=== PATIENT | male | born 1950 | race Caucasian/White ===

== ENCOUNTER 2019-06-11 13:35 | Inpatient (IN) | payer MEDICARE ==
[2019-06-10 23:00] VITALS: BP 107/87
[~2019-06-11] VITALS: Ht 188 cm; Wt 95.0 kg
[2019-06-11 13:35] VITALS: BP 170/102
[~2019-06-11 13:35] MED LIST: ASPIR 8181 MG PO; ASPIRIN325 PO; CELEBREX 200 M200 M1 PO; COLACE100 MG PO; FLEXERIL PO; KEFLEX500 MG PO; METAMUCIL PAC1 UDPKT PO; MILK OF MA2400 MG/10 PO; MOBIC15 MG PO; NEURONTIN 300300 M1 PO; NICOTINE TRANSD21 M1 TRANSDERM; NORCO 5-325 TA1 EACH PO; OXYCODONE HCL 55 MG PO; VITAMIN B-1100 M1 PO; XARELTO10 MG PO
[2019-06-11 14:05] LABS: ABSOLUTE LYMPHOCYTES 0.8 thou/uL (0.8-5.3); ABSOLUTE NEUTROPHILS 6.4 thou/uL (1.6-8.1); BASOPHILS 0.5 %; HEMATOCRIT 41.6 % (42.0-52.0); HEMOGLOBIN 14.6 gm/dL (14.0-18.0); LYMPHOCYTES 9.6 %; MCH 36.6 pg (26.0-34.0); MCHC 35.1 g/dL (28.0-37.0); MCV 104.3 fL (80.0-100.0); MPV 7.6 fl. (7.2-11.1); NUCLEATED RBCS 0 /100WBC; PLATELET COUNT* 160 thou/uL (150-400); POLYS 77.9 %; RBC 3.98 mil/uL (4.50-6.00); RDW-CV 13.9 % (10.5-14.5); WBC 8.2 thou/uL (4.0-11.0)
[2019-06-11 14:15] LABS: ANION GAP 13 mmol/L (7-16); BUN 2 mg/dL (7-18); CALCIUM 8.8 mg/dL (8.5-10.1); CHLORIDE 90 mmol/L (98-107); CO2 23 mmol/L (21-32); CREATININE 0.6 mg/dL (0.6-1.3); GLUCOSE 115 mg/dL (70-99); POTASSIUM 4.6 mmol/L (3.5-5.1); SODIUM 126 mmol/L (136-145)
[2019-06-11 14:24] LABS: ALBUMIN 3.3 g/dL (3.4-5.0); ALKALINE PHOSPHATASE 103 U/L (46-116); SGOT 83 U/L (15-37); SGPT 68 U/L (30-65); TOTAL BILIRUBIN 1.1 mg/dL (<0.1-1.0); TOTAL PROTEIN 6.6 g/dL (6.4-8.2); TROPONIN-I LEVEL <0.06 ng/mL (<0.06)
[2019-06-11 14:39] LABS: URINE BILIRUBIN NEGATIVE (Negative); URINE BLOOD TRACE (Negative); URINE CLARITY CLEAR; URINE COLOR YELLOW; URINE GLUCOSE-RANDOM NEGATIVE (Negative); URINE KETONES 1+ (Negative); URINE LEUKOCYTES-REFLEX NEGATIVE (Negative); URINE NITRITE-REFLEX NEGATIVE (Negative); URINE PROTEIN NEGATIVE (Negative); URINE UROBILINOGEN 0.2 E.U./dl (0.2-1.0)
[2019-06-11 14:47] LABS: AMP/METHAMP Negative (Negative); BARBITURATES Negative (Negative); BENZODIAZEPINES Negative (Negative); COCAINE Negative (Negative); METHADONE Negative (Negative); OPIATES Negative (Negative); PCP Negative (Negative); THC Negative (Negative)
[2019-06-11 16:04] LABS: APTT 27.2 Seconds (25.0-31.3); PROTIME 10.7 Seconds (9.20-11.50)
[2019-06-11 19:46] VITALS: BP 112/46
[2019-06-11 19:50] VITALS: BP 111/73
[2019-06-11 21:00] VITALS: BP 97/67
[2019-06-11 22:00] VITALS: BP 127/65
[2019-06-11 23:00] VITALS: BP 137/65
[2019-06-12] VITALS (9 sets, daily range): BP systolic 93–153; BP diastolic 60–94
[2019-06-12 05:10] LABS: ABSOLUTE LYMPHOCYTES 1.5 thou/uL (0.8-5.3); ABSOLUTE MONOCYTES 1.3 thou/uL (0.0-1.2); ABSOLUTE NEUTROPHILS 4.8 thou/uL (1.6-8.1); BASOPHILS 0.3 %; EOSINOPHILS 0.3 %; HEMATOCRIT 35.3 % (42.0-52.0); LYMPHOCYTES 19.7 %; MCH 36.5 pg (26.0-34.0); MCHC 34.4 g/dL (28.0-37.0); MCV 106.1 fL (80.0-100.0); MONOCYTES 17.2 %; MPV 8.4 fl. (7.2-11.1); NUCLEATED RBCS 0 /100WBC; PLATELET COUNT* 148 thou/uL (150-400); POLYS 62.5 %; RBC 3.33 mil/uL (4.50-6.00); WBC 7.6 thou/uL (4.0-11.0)
[2019-06-12 05:26] LABS: HEMOGLOBIN 12.2 gm/dL (14.0-18.0)
[2019-06-12 05:47] LABS: AMMONIA 19 umol/L (11-32); ANION GAP 8 mmol/L (7-16); BUN 4 mg/dL (7-18); CALCIUM 8.1 mg/dL (8.5-10.1); CHLORIDE 94 mmol/L (98-107); CHOLESTEROL 116 mg/dL (<200); CO2 26 mmol/L (21-32); CREATININE 0.6 mg/dL (0.6-1.3); GLUCOSE 135 mg/dL (70-99); HDL CHOLESTEROL 71 mg/dL (>40); LDL CHOLESTEROL 39 mg/dL (<100); MAGNESIUM 1.8 mg/dL (1.8-2.4); PHOSPHORUS* 3.1 mg/dL (2.5-4.9); POTASSIUM 3.9 mmol/L (3.5-5.1); SODIUM 128 mmol/L (136-145); TC:HDL 1.6 Ratio (Not establshd); TRIGLYCERIDE 34 mg/dL (<150); VLDL 7 mg/dL (<40)
[2019-06-12 05:50] LABS: SERUM ASSESSMENT CLEAR
--- NOTE | 2019-06-12 12:19 | EKG ---
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 : 1950 Requested By: Jose Crews Order Number: [id number] MD: Jered Degroot Measurements Intervals [place] Rate: 103 P: 73 MD: 183 QRS: 64 QRSD: 87 T: 242 QT: 337 QTc: 441 Interpretive Statements Sinus tachycardia Probable anterior infarct, age indeterminate Compared to ECG 06/13/2014 09:44:35 Sinus rhythm no longer present Ventricular premature complex(es) no longer present Electronically Signed On 06-12-2019 12:19:42 CDT by Jered Degroot [email or web address] <ELECTRONICALLY SIGNED> By: Jered Degroot MD, [facility] 06/12/19 1219 1415 1415 Jered Degroot MD, [facility] /EPI
--- NOTE | 2019-06-12 12:25 | EKG ---
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
[2019-06-13] VITALS: BP 139/89
[2019-06-13 02:05] LABS: GLYCOHEMOGLOBIN (HGB A1C) 4.8 % (4.8-5.6)
[2019-06-13 04:20] VITALS: BP 151/90
[2019-06-13 04:55] LABS: ABSOLUTE LYMPHOCYTES 1.3 thou/uL (0.8-5.3); ABSOLUTE MONOCYTES 1.1 thou/uL (0.0-1.2); ABSOLUTE NEUTROPHILS 5.8 thou/uL (1.6-8.1); EOSINOPHILS 0.1 %; HEMATOCRIT 31.7 % (42.0-52.0); LYMPHOCYTES 15.5 %; MCH 36.7 pg (26.0-34.0); MCHC 34.6 g/dL (28.0-37.0); MCV 106.2 fL (80.0-100.0); MONOCYTES 13.5 %; MPV 8.4 fl. (7.2-11.1); NUCLEATED RBCS 0 /100WBC; PLATELET COUNT* 138 thou/uL (150-400); POLYS 70.9 %; RBC 2.99 mil/uL (4.50-6.00); RDW-CV 14.2 % (10.5-14.5); WBC 8.1 thou/uL (4.0-11.0)
[2019-06-13 05:09] LABS: CALCIUM 8.2 mg/dL (8.5-10.1); CREATININE 0.6 mg/dL (0.6-1.3); POTASSIUM 3.5 mmol/L (3.5-5.1)
[2019-06-13 08:00] VITALS: BP 115/74
[2019-06-13 11:32] VITALS: BP 108/76
[2019-06-13 16:59] VITALS: BP 105/60
[2019-06-13 19:44] VITALS: BP 134/77
[2019-06-14] VITALS (7 sets, daily range): BP systolic 127–175; BP diastolic 70–96
[2019-06-14 05:14] LABS: ABSOLUTE LYMPHOCYTES 1.3 thou/uL (0.8-5.3); ABSOLUTE MONOCYTES 1.1 thou/uL (0.0-1.2); ABSOLUTE NEUTROPHILS 4.5 thou/uL (1.6-8.1); BASOPHILS 0.3 %; EOSINOPHILS 0.5 %; HEMATOCRIT 31.4 % (42.0-52.0); LYMPHOCYTES 18.8 %; MCH 37.5 pg (26.0-34.0); MCHC 35.1 g/dL (28.0-37.0); MCV 106.8 fL (80.0-100.0); MONOCYTES 15.4 %; NUCLEATED RBCS 0 /100WBC; PLATELET COUNT* 136 thou/uL (150-400); RBC 2.94 mil/uL (4.50-6.00); RDW-CV 13.9 % (10.5-14.5); WBC 6.8 thou/uL (4.0-11.0)
[2019-06-14 05:33] LABS: CALCIUM 8.5 mg/dL (8.5-10.1); CREATININE 0.5 mg/dL (0.6-1.3); MAGNESIUM 1.8 mg/dL (1.8-2.4); PHOSPHORUS* 2.6 mg/dL (2.5-4.9); POTASSIUM 3.6 mmol/L (3.5-5.1)
[2019-06-15 04:00] VITALS: BP 143/82
[2019-06-15 04:30] LABS: CALCIUM 8.1 mg/dL (8.5-10.1); CREATININE 0.4 mg/dL (0.6-1.3); POTASSIUM 3.1 mmol/L (3.5-5.1)
[2019-06-15 08:00] VITALS: BP 154/91
[2019-06-15 11:46] VITALS: BP 110/65
[2019-06-15 15:58] VITALS: BP 108/64
[2019-06-15 20:00] VITALS: BP 137/86
[2019-06-16] VITALS: BP 142/84
[2019-06-16 04:00] VITALS: BP 128/71
[2019-06-16 05:03] LABS: ALBUMIN 2.2 g/dL (3.4-5.0); CALCIUM 8.3 mg/dL (8.5-10.1); CREATININE 0.4 mg/dL (0.6-1.3); MAGNESIUM 1.7 mg/dL (1.8-2.4); PHOSPHORUS* 3.2 mg/dL (2.5-4.9); POTASSIUM 3.7 mmol/L (3.5-5.1)
[2019-06-16 08:00] VITALS: BP 147/87
[2019-06-16 11:54] VITALS: BP 140/85
[2019-06-16 18:56] VITALS: BP 164/94
[2019-06-16 20:00] VITALS: BP 165/93
[2019-06-17] VITALS: BP 149/85
[2019-06-17 04:29] VITALS: BP 173/103
[2019-06-17 04:29] LABS: HEMATOCRIT 29.1 % (42.0-52.0); HEMOGLOBIN 10.1 gm/dL (14.0-18.0); MCH 36.4 pg (26.0-34.0); MCHC 34.7 g/dL (28.0-37.0); MCV 104.7 fL (80.0-100.0); MPV 7.2 fl. (7.2-11.1); NUCLEATED RBCS 0 /100WBC; RBC 2.78 mil/uL (4.50-6.00); RDW-CV 13.6 % (10.5-14.5); WBC 5.4 thou/uL (4.0-11.0)
[2019-06-17 04:48] LABS: PLATELET COUNT* 253 thou/uL (150-400)
[2019-06-17 04:51] LABS: ALBUMIN 2.3 g/dL (3.4-5.0); CALCIUM 8.7 mg/dL (8.5-10.1); CREATININE 0.4 mg/dL (0.6-1.3); PHOSPHORUS* 3.7 mg/dL (2.5-4.9); POTASSIUM 3.3 mmol/L (3.5-5.1)
[2019-06-17 05:45] LABS: ABSOLUTE BASOPHILS 0.1 thou/uL (0.0-0.2); ABSOLUTE EOSINOPHILS 0.1 thou/uL (0.0-0.7); ABSOLUTE LYMPHOCYTES 1.3 thou/uL (0.8-5.3); ABSOLUTE MONOCYTES 1.1 thou/uL (0.0-1.2); ABSOLUTE NEUTROPHILS 2.9 thou/uL (1.6-8.1)
[2019-06-17 05:46] LABS: ANISOCYTOSIS 1+; PLATELET ESTIMATE ADEQUATE; POIKILOCYTOSIS 1+
[2019-06-17 07:50] VITALS: BP 166/89
[2019-06-17 12:00] VITALS: BP 144/82
[2019-06-17] MEDS ORDERED: FOLIC ACID1 MG PO (14:15)
[2019-06-17] MEDS ORDERED: OXYCODONE HCL5 MG PO (14:17)
[2019-06-17] MEDS ORDERED: IPRAT-ALBUT 0.5-3 ML INH (14:21)
[2019-06-17] MEDS ORDERED: ENOXAPARIN40 MG/0.1 SUBQ (14:26)
[2019-06-17] MEDS ORDERED: NICOTINE TRANSD21 M1 TRANSDERM (14:27)
[2019-06-17] MEDS ORDERED: PRENATAL PO (14:28)
[2019-06-17] MEDS ORDERED: PROTONIX40 M1 PO (14:29)
[2019-06-17] MEDS ORDERED: SENOKOT-S TABL1 EACH PO (14:30)
[2019-06-17] MEDS ORDERED: VITAMIN B-1100 M1 PO (14:31)
[2019-06-17 14:33] VITALS: BP 144/82
[2019-06-17 16:15] VITALS: BP 148/93
--- NOTE | 2019-07-01 13:45 | OP ---
[address] [address] OPERATIVE REPORT Name: THERESA ORELLANA Truong Room: [address] IN .R.#: [id number] Admission: 06/11/19 Attend Phys: Tiburcio Reyes MD Discharge: 06/17/19 Date of : 52 Report #: [id number] THIS REPORT FOR: //name// CC: [facility] physician/PCP Tiburcio Reyes DICTATED BY: Jignesh Escobedo DO DATE OF SERVICE: 06/12/2019 PREOPERATIVE DIAGNOSIS: Right displaced intertrochanteric proximal femur fracture. POSTOPERATIVE DIAGNOSIS: Right displaced intertrochanteric proximal femur fracture. PROCEDURE PERFORMED: Right open reduction and internal fixation of intertrochanteric proximal femur fracture with cephalomedullary nail. SURGEON: Attila Yancey DO. SETUP OPERATOR 1: Jignesh Escobedo DO SETUP OPERATOR 2: Chevy Lyn DO ANESTHESIA: General endotracheal anesthetic. ANTIBIOTICS: 2 grams of Ancef given IV 30 minutes prior to incision. SPECIMENS: None. COMPLICATIONS: None. DRAINS: None. ESTIMATED BLOOD LOSS: 20 mL. CONDITION: Stable to PACU. DISPOSITION: PACU to medical surgical floor. INDICATIONS FOR PROCEDURE: The patient is a pleasant 69-year-old male who on 06/11/2019, fell while he was ambulating in his house and landed on his right lower extremity. He had immediate onset of pain and inability to bear weight on the right lower extremity. He was subsequently evaluated at [facility] Emergency Department where he was determined to have a displaced [facility] [address] [place] [address] OPERATIVE REPORT Name: THERESA ORELLANA Truong Room: [address] IN .R.#: [id number] Admission: 06/11/19 Attend Phys: Tiburcio Reyes MD Discharge: 06/17/19 Date of : 52 Report #: [id number] intertrochanteric proximal femur fracture and was subsequently recommended that he undergo right open reduction and internal fixation with cephalomedullary nail. Therefore, the risks, benefits, treatment options, alternatives, and indications were discussed with the patient. Risks included but not limited to damage to surrounding neurovascular structures, continued pain, continued bleeding, need for repeat surgery, iatrogenic fracture, fracture nonunion or malunion, wound dehiscence, infection and need for prolonged antibiotics and subsequent hardware removal, complications of antibiotics consisting of acute renal failure and C. difficile colitis, DVT, PE, as well as inherent complications of anesthesia. The patient understood the risks and wished to proceed with surgery. DESCRIPTION OF PROCEDURE: The patient was seen in the preoperative holding area where consent was obtained and signed by his durable power of assistant city attorney then the right lower extremity was marked and initialed. The patient was transferred back to the operative suite and placed supine on the operating room table. He was then positioned appropriately on the [place] table with the right lower extremity in a well-padded boot and secured onto the outrigger. The left lower extremity was placed into the Well-Leg glez in a flexed, abducted position to allow imaging with a C-arm. The patient was placed in appropriate position as well as the patient was securely fastened with safety belt. Once the patient was appropriately positioned and all bony prominences were well padded, initial closed reduction maneuvers were performed with traction with external rotation followed by traction and internal rotation and abduction of the leg. A reduction was then confirmed to be in appropriate position with fluoroscopy on AP and lateral images. The patient was then sterilely prepped utilizing Hibiclens scrub followed by alcohol rinse and then ChloraPrep x 2 and then draped in normal sterile fashion with Ioban and shower curtain drape. A timeout was then held indicating appropriate patient and procedure to be performed, operative site, operative surgeon and preoperative antibiotics. All in attendance were in agreeance. Surgery began with identification of the greater trochanter on AP image followed by the trajectory of the anterior bow of the femur on the lateral image. Next, an approximately 4 cm incision was made 2 cm proximal to the tip of the greater trochanter in line with the proximal above the femur with a 10 blade scalpel. The skin was incised and then subcutaneous dissection was performed sharply followed by longitudinal incision of the iliotibial band. Next, the fibers of the gluteus medius were then palpated and one of the raphes were split in line with the greater trochanter at the approximate starting point with a curved Metzenbaum scissors. Next, the insertional guidewire was then placed at the anterior one-third and posterior 2/3rd border of the greater trochanter just medial to the tip and confirmed to be in appropriate position on AP and lateral images. This was driven down to the level of the lesser trochanter. There was confirmed to be in appropriate position on lateral images to be in line with the posterior one-third of the femoral neck as well as the femoral shaft. Next opening entry reamer was placed in appropriate position and driven to the level of the lesser trochanter. This [address] [address] OPERATIVE REPORT Name: THERESA ORELLANA Room: [address] IN Paty#: [id number] Admission: 06/11/19 Attend Phys: Tiburcio Reyes MD Discharge: 06/17/19 Date of : 52 Report #: [id number] was visualized under fluoroscopy. Then, a 125 angled 180 mm cephalomedullary nail was placed in appropriate position and determined to be in the inferior portion of the femoral neck. Next, a triple sleeve was then inserted to the appropriate 125 angled guide. Skin was then incised in line with a 10 blade scalpel through skin and subcutaneous tissue and then through the iliotibial band to the level of the bone. A triple sleeve was then inserted until it was flushed against bone and then locked into place. The guidewire was then inserted through the triple sleeve and driven into appropriate position on AP and lateral images just shy of the subchondral bone. This measured to be approximately 110 mm in length. A subsequent reamer was then set to 105 mm and then a drill bit appropriately placed and visualized under C-arm not to penetrate the subchondral bone on both AP and lateral images. Next, a 110 mm lag screw was then placed into appropriate position and tightened appropriately and determined to be in appropriate position with fluoroscopy. Next compression was then performed and visualized under C-arm until adequate compression was obtained. Next, the set screw was then placed in appropriate position and tightened fully and then backed off a quarter turn. Next, attention was directed to the distal aspect of the nail where appropriate triple sleeve was then placed in appropriate position for the static locking screw and a small skin incision was made with a 10 blade scalpel through skin and subcutaneous tissue and then longitudinal incision of the IT band to the level of bone. Appropriate drill sleeves were then placed in the appropriate position and flushed against bone and confirmed on fluoroscopy. An intradural sleeve was then removed and the drill bit was driven bicortically and visualized under C-arm to be in appropriate position and length. It was determined that the length was a 42.5 mm screw. A drill was then removed and 42.5 mm screw was then placed into appropriate position and hand tightened until two finger tight bite was obtained. This was visualized to be in appropriate position on AP and lateral views of fluoroscopy. Next, all outrigger and aiming devices were subsequently removed and final C-arm images, AP and lateral views proximally and distally were taken and saved. Wounds were then thoroughly irrigated with normal saline and then IT band was closed utilizing 1 Vicryl in [id number] interrupted fashion followed by skin closure of 2-0 Vicryl in inverted interrupted fashion followed by aba and a sterile dressing of Mepilex were applied. Anesthesia was subsequently reversed and the patient was transferred back to his bed and then taken to PACU in normal and stable condition. Dr. Mcallister was present for all critical aspects of the case. <ELECTRONICALLY SIGNED> By: Attila Yancey DO 07/01/19 1345 0837 0905Attila Yancey DO /nt
== END 2019-06-17 17:32 | DRG 480 ==
LOC: M.ERS 13:35 → M.TBA-ER 15:47 → M.2W 15:47
PROVIDERS: Physician Assistant; ADMIT Family Medicine
PROC: 0QS604Z Reposition Right Upper Femur with Internal Fixation Device, Open Approach (ICD-10-PCS; principal; 2019-06-12)
DX: S72.144A Nondisplaced intertrochanteric fracture of right femur, initial encounter for closed fracture (principal); G93.41 Metabolic encephalopathy; E87.1 Hypo-osmolality and hyponatremia; F10.239 Alcohol dependence with withdrawal, unspecified; K70.30 Alcoholic cirrhosis of liver without ascites; F10.20 Alcohol dependence, uncomplicated; F17.210 Nicotine dependence, cigarettes, uncomplicated; Z86.73 Personal history of transient ischemic attack (TIA), and cerebral infarction without residual deficits; E78.5 Hyperlipidemia, unspecified; E83.51 Hypocalcemia; F10.229 Alcohol dependence with intoxication, unspecified; W18.39XA Other fall on same level, initial encounter; Y93.89 Activity, other specified; Y92.89 Other specified places as the place of occurrence of the external cause; Y99.8 Other external cause status

== ENCOUNTER 2020-08-28 05:25 | Observation (INO) | payer MEDICARE ==
[2020-08-28] VITALS (7 sets, daily range): BP systolic 122–145; BP diastolic 80–92
[~2020-08-28] VITALS: Ht 182.9 cm; Wt 86.2 kg
[~2020-08-28 05:25] MED LIST changes: +ENOXAPARIN40 MG/0.1 SUBQ; +FOLIC ACID1 MG PO; +IPRAT-ALBUT 0.5-3 ML INH; +OXYCODONE HCL5 MG PO; +PRENATAL PO; +PROTONIX40 M1 PO; +SENOKOT-S TABL1 EACH PO
[2020-08-28] MEDS ORDERED: [UNRECOGNIZED DRUG - REMARK] (05:33)
[2020-08-28 07:20] LABS: ABSOLUTE LYMPHOCYTES 1.1 thou/uL (0.8-5.3); ABSOLUTE MONOCYTES 1.3 thou/uL (0.0-1.2); ABSOLUTE NEUTROPHILS 6.9 thou/uL (1.6-8.1); BASOPHILS 0.4 %; EOSINOPHILS 0.1 %; HEMATOCRIT 47.1 % (42.0-52.0); MCH 33.4 pg (26.0-34.0); MCV 98.1 fL (80.0-100.0); MONOCYTES 14.2 %; MPV 7.9 fl. (7.2-11.1); NUCLEATED RBCS 0 /100WBC; PLATELET COUNT* 208 thou/uL (150-400); POLYS 73.3 %; RBC 4.81 mil/uL (4.50-6.00); RDW-CV 12.9 % (10.5-14.5); WBC 9.5 thou/uL (4.0-11.0)
[2020-08-28 07:28] LABS: CALCIUM 9.2 mg/dL (8.5-10.1); CREATININE 0.6 mg/dL (0.6-1.3); POTASSIUM 3.8 mmol/L (3.5-5.1)
[2020-08-28 07:31] LABS: URINE BLOOD 1+ (Negative); URINE CLARITY CLEAR; URINE COLOR YELLOW; URINE GLUCOSE-RANDOM NEGATIVE (Negative); URINE KETONES TRACE (Negative); URINE LEUKOCYTES-REFLEX NEGATIVE (Negative); URINE PROTEIN 1+ (Negative); URINE SPECIFIC GRAVITY 1.025 (1.005-1.030)
[2020-08-28 07:32] LABS: ALBUMIN 3.3 g/dL (3.4-5.0); MAGNESIUM 1.9 mg/dL (1.8-2.4); TOTAL BILIRUBIN 1.2 mg/dL (<0.1-1.0); TOTAL PROTEIN 8.2 g/dL (6.4-8.2)
[2020-08-28 07:34] LABS: ICTOTEST (BILI CONFIRMATORY) Negative (Negative); URINE BILIRUBIN 1+ (Negative); URINE NITRITE-REFLEX POSITIVE (Negative)
[2020-08-28 07:41] LABS: CRYSTALS None Seen /LPF (None Seen); HYALINE CASTS 0-3 Few /LPF (None Seen); MUCUS >6 Heavy strn/LPF (None Seen); SQUAMOUS 0-3 Few /LPF (0-3); URINE RBC 3-10 Few /HPF (0-2); URINE WBC-REFLEX 0-5 Rare /HPF (0-5)
[2020-08-28 14:18] LABS: CALCIUM 8.7 mg/dL (8.5-10.1); CREATININE 0.8 mg/dL (0.6-1.3); POTASSIUM 3.2 mmol/L (3.5-5.1)
[2020-08-28 14:22] LABS: MAGNESIUM 1.8 mg/dL (1.8-2.4); PHOSPHORUS* 2.6 mg/dL (2.5-4.9)
[2020-08-28] MEDS ORDERED: TYLENOL EXTRA500 MG PO (17:41)
== END 2020-08-28 19:45 | disposition home or self-care (01) ==
LOC: M.ERS 05:25 → M.TBA-ER 06:51 → M.2W 08:55
PROVIDERS: Personal Emergency Response Attendant; ADMIT Internal Medicine; ATTEND Internal Medicine
DX: S72.111A Displaced fracture of greater trochanter of right femur, initial encounter for closed fracture (principal); E87.1 Hypo-osmolality and hyponatremia; R31.9 Hematuria, unspecified; R79.89 Other specified abnormal findings of blood chemistry; F17.200 Nicotine dependence, unspecified, uncomplicated; F10.10 Alcohol abuse, uncomplicated; W18.30XA Fall on same level, unspecified, initial encounter; Y92.89 Other specified places as the place of occurrence of the external cause; Y99.8 Other external cause status; Y93.89 Activity, other specified; Z91.81 History of falling; Z20.828 Contact with and (suspected) exposure to other viral communicable diseases

== ENCOUNTER 2020-08-30 18:18 | Inpatient (IN) | payer MEDICARE ==
[~2020-08-30] VITALS: Ht 190.5 cm; Wt 82.7 kg
[~2020-08-30 18:18] MED LIST changes: +TYLENOL EXTRA500 MG PO; +[UNRECOGNIZED DRUG - REMARK]
[2020-08-30 18:25] VITALS: BP 103/77
[2020-08-30 19:00] LABS: ABSOLUTE BASOPHILS 0.1 thou/uL (0.0-0.2); ABSOLUTE LYMPHOCYTES 1.1 thou/uL (0.8-5.3); ABSOLUTE MONOCYTES 1.6 thou/uL (0.0-1.2); ABSOLUTE NEUTROPHILS 8.6 thou/uL (1.6-8.1); BASOPHILS 0.5 %; HEMATOCRIT 36.4 % (42.0-52.0); LYMPHOCYTES 9.5 %; MCH 32.8 pg (26.0-34.0); MCHC 33.5 g/dL (28.0-37.0); MONOCYTES 13.9 %; MPV 7.7 fl. (7.2-11.1); NUCLEATED RBCS 0 /100WBC; PLATELET COUNT* 218 thou/uL (150-400); POLYS 76.1 %; RBC 3.72 mil/uL (4.50-6.00); RDW-CV 12.9 % (10.5-14.5); WBC 11.3 thou/uL (4.0-11.0)
[2020-08-30 19:01] LABS: HEMOGLOBIN 12.2 gm/dL (14.0-18.0)
[2020-08-30 19:10] LABS: APTT 23.8 Seconds (25.0-31.3); PROTIME 10.9 Seconds (9.20-11.50)
[2020-08-30 19:16] LABS: CREATININE 0.8 mg/dL (0.6-1.3); POTASSIUM 3.3 mmol/L (3.5-5.1)
[2020-08-30 19:21] LABS: ALBUMIN 2.6 g/dL (3.4-5.0); TOTAL BILIRUBIN 1.3 mg/dL (<0.1-1.0); TOTAL PROTEIN 6.9 g/dL (6.4-8.2)
[2020-08-30 20:29] LABS: BE -1.4 mmol/L (-2 to +3); PCO2 28.9 mmHg (35.0-45.0); PO2 88.2 mmHg (75.0-100.0); pH 7.481 (7.340-7.450)
[2020-08-30 21:23] LABS: URINE BILIRUBIN NEGATIVE (Negative); URINE BLOOD TRACE (Negative); URINE CLARITY CLEAR; URINE COLOR YELLOW; URINE GLUCOSE-RANDOM NEGATIVE (Negative); URINE KETONES TRACE (Negative); URINE LEUKOCYTES-REFLEX NEGATIVE (Negative); URINE NITRITE-REFLEX NEGATIVE (Negative); URINE PROTEIN NEGATIVE (Negative); URINE SPECIFIC GRAVITY <= 1.005 (1.005-1.030)
[2020-08-30 21:32] LABS: AMP/METHAMP Negative (Negative); BARBITURATES Negative (Negative); BENZODIAZEPINES Negative (Negative); COCAINE Negative (Negative); METHADONE Negative (Negative); OPIATES Negative (Negative); PCP Negative (Negative); THC Negative (Negative)
[2020-08-31 01:30] VITALS: BP 130/85
[2020-08-31 01:45] VITALS: BP 124/70
[2020-08-31 04:48] VITALS: BP 144/83
[2020-08-31 08:00] VITALS: BP 118/71
--- NOTE | 2020-08-31 10:20 | EKG ---
[place] [address] ELECTROCARDIOGRAM REPORT Name: THERESA ORELLANA Room: [address] ADM IN .R.#: [id number] Admission: 08/30/20 Attend Phys: Derek Sampson Discharge: Date of : 52 Date of Service: 08/30/20 1829 Report #: [id number] THIS REPORT FOR: //name// [facility] ED Test Date: 2020-08-30 Test Time: 18:29:48 Pat Name: THERESA ORELLANA Department: Room: 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 : 1950 Requested By: Esau Obrien Order Number: [id number] MD: Jered Degroot Measurements Intervals [place] Rate: 104 P: 55 [place]: 122 QRS: 50 QRSD: 87 T: -47 QT: 365 QTc: 481 Interpretive Statements Sinus tachycardia with pac's artifact noted Abnrm T, consider ischemia, anterolateral lds Compared to ECG 06/12/2019 04:36:06 Possible ischemia now present Sinus rhythm no longer present Myocardial infarct finding no longer present Prolonged QT interval no longer present Electronically Signed On 08-31-2020 10:20:36 TRAINING AND DEVELOPMENT SPECIALIST by Jered Degroot [email or web address] <ELECTRONICALLY SIGNED> By: Jered Degroot MD, [facility] 08/31/20 1020 28 28 Jered Degroot MD, [facility] /EPI
== END 2020-08-31 14:45 | disposition short-term general hospital (02) | DRG 542 ==
LOC: M.ERS 18:18 → M.TBA-ER 23:35 → M.2W 23:35
PROVIDERS: Emergency Medicine; Emergency Medicine Emergency Medical Services; ADMIT Internal Medicine; ATTEND Internal Medicine
DX: M80.051A Age-related osteoporosis with current pathological fracture, right femur, initial encounter for fracture (principal); G93.41 Metabolic encephalopathy; I10 Essential (primary) hypertension; E78.00 Pure hypercholesterolemia, unspecified; E86.0 Dehydration; Z96.1 Presence of intraocular lens; W19.XXXA Unspecified fall, initial encounter; N30.90 Cystitis, unspecified without hematuria; F10.20 Alcohol dependence, uncomplicated; Y90.9 Presence of alcohol in blood, level not specified; F17.210 Nicotine dependence, cigarettes, uncomplicated; Z96.652 Presence of left artificial knee joint; Z20.828 Contact with and (suspected) exposure to other viral communicable diseases; Z98.41 Cataract extraction status, right eye; Z79.899 Other long term (current) drug therapy; Z98.42 Cataract extraction status, left eye; Z88.8 Allergy status to other drugs, medicaments and biological substances; Y93.89 Activity, other specified; Y92.89 Other specified places as the place of occurrence of the external cause; Y99.8 Other external cause status